=== PATIENT | female | born 1950 | race Caucasian/White ===

== ENCOUNTER → 2017-02-18 | Outpatient (CLI) | payer OTHER, BC ==
[~2017-02-18] MED LIST: BACTRIM DS TAB1 EACH PO; IMITREX100 MG PO; ULTRAM50 MG PO
[2017-02-18 13:11] LABS: CREATININE 0.8 mg/dL (0.6-1.0)
== END ==
LOC: LABMALL 12:17 → CAT 12:17
PROVIDERS: Specialist
DX: R19.7 Diarrhea, unspecified (principal); R10.9 Unspecified abdominal pain